=== PATIENT | female | born 1960 | race Caucasian/White ===

== ENCOUNTER → 2018-05-05 08:26 | Outpatient (CLI) | payer BC, SELFPAY ==
[2018-04-22 13:15] VITALS: BMI 32.1
--- NOTE | 2018-05-05 08:29 | NM_ITS ---
CLINICAL: 58-year-old female with reported history of carcinoma of the breast. WHOLE BODY 99m Tc MDP RADIONUCLIDE BONE SCINTIGRAPHY COMPARISON: Previous whole body bone scintigraphy study dated 06/18/2013 FINDINGS: Following the intravenous administration of 26.6 mCi of 99m Tc MDP, whole body bone images reveal: 1. Increased radiopharmaceutical concentration is currently identified in the acromioclavicular compartment of the right shoulder, mid cervical spine posteriorly on the left, ninth thoracic vertebra posteriorly on the left, the left elbow, right knee, the right ankle and right forefoot, fifth lumbar vertebra posteriorly on the left and right, posterior midline sacrum, second and ninth thoracic vertebra posteriorly on the left. 2. The remaining skeletal structures are scintigraphically unremarkable with normal-appearing renal images and urinary bladder activity identified. Facilitated uptake is defined in the right-left maxillae most consistent with periodontal disease and/or periostitis. The left knee arthroplasty demonstrates no significant increase in tracer concentration. NM/Bone Scan Whole Body IMPRESSION: 1. The increase in radiopharmaceutical concentration identified in the cervical, thoracic and lumbar spine, right shoulder, left elbow, right knee, the right ankle, right forefoot and sacrum is most consistent with degenerative arthritis. 2. Overall compared to the previous whole body bone scintigraphy study dated 06/18/2013, there is no significant interval change. No current typical scintigraphic evidence of diffuse axial skeletal metastatic disease is defined on the current examination. Electronically Signed: Jeremie Redman DO at 23:35 EST Tel , Service support ,
== END ==
PROVIDERS: Family Provider Internal Medicine; PCP Internal Medicine; Referring Provider Internal Medicine Medical Oncology; Visit Provider Internal Medicine Medical Oncology
DX: R07.89 Other chest pain (principal); Z85.3 Personal history of malignant neoplasm of breast
CPT/HCPCS: 78306

== ENCOUNTER → 2018-05-12 08:46 | Outpatient (CLI) | payer BC, SELFPAY ==
[2018-04-22 13:15] VITALS: BMI 32.1
--- NOTE | 2018-05-12 08:49 | CT_ITS ---
STUDY: CT CHEST, ABDOMEN AND PELVIS WITH CONTRAST REASON FOR EXAM: Female, 58 years old. Left chest discomfort, history of left breast cancer with lumpectomy and radiation therapy for half years ago. Prior gastric bypass, cholecystectomy, hysterectomy. RADIATION DOSAGE (If Supplied By Facility): CTDIvol = ( 15.2+12.5+21.2 ) mGy, DLP = ( 1541.83 ) mGycm TECHNIQUE: Transaxial imaging was performed following intravenous administration of 100mL ml of Isovue 300 contrast material. : Sagittal 2-D MPR Individualized dose optimization techniques were used for this CT. COMPARISON: Bone scan 05/05/2018. CT chest 07/03/2013. MRI pelvis 02/14/2015. FINDINGS: CT CHEST: Supraclavicular: No acute process. Thoracic body wall soft tissues: No acute process. There is no axillary lymphadenopathy. There is no apparent lymphedema. Osseous structures: Mild scoliosis. No visualized lytic or blastic osseous lesions. Mediastinum: There are postsurgical changes of the gastroesophageal junction and stomach consistent with prior bariatric surgery. Esophagus is unremarkable. There is no mediastinal mass or lymphadenopathy. There is no hilar lymphadenopathy. Cardiovascular: Normal heart size without pericardial effusion. No visible coronary calcifications. Nondilated aorta with no arch atherosclerosis. Nondilated central pulmonary arteries with no evidence of central pulmonary embolus. Lungs: Normal. CT abdomen and pelvis: Body wall soft tissues: No acute process. Osseous structures: No acute process. Mild low lumbar facet arthropathy without significant degenerative disc disease. Slight scoliosis. No lytic or blastic lesions are apparent. Hepatobiliary: Cholecystectomy, no significant delay or ductal ectasia, normal liver parenchyma. Pancreas: Mild atrophy. Spleen: Normal. Adrenal glands: Normal. Urogenital: Normal kidneys, collecting systems, ureters, urinary bladder. Uterus is absent. There is no adnexal mass or cyst or cul-de-sac free fluid. Pelvic floor and sidewalls and retroperitoneum: No mass or lymphadenopathy. Vasculature: Unremarkable. Stomach: Postsurgical changes. No acute process. Small bowel and mesentery: No acute process. Large bowel: Normal appendix. Unremarkable large bowel and rectum. Free fluid or free air: None. CT/Chest WITH Contrast IMPRESSION: No acute thoracic or abdominopelvic process is evident. There is no apparent abnormality of the left chest wall, left lung or pleura. There is no evidence of osseous or soft tissue metastatic disease, or lymphadenopathy. Electronically Signed: Jeremie Diana MD at 17:05 EST Tel , Service support ,
--- NOTE | 2018-05-12 08:49 | CT_ITS ---
STUDY: CT CHEST, ABDOMEN AND PELVIS WITH CONTRAST REASON FOR EXAM: Female, 58 years old. Left chest discomfort, history of left breast cancer with lumpectomy and radiation therapy for half years ago. Prior gastric bypass, cholecystectomy, hysterectomy. RADIATION DOSAGE (If Supplied By Facility): CTDIvol = ( 15.2+12.5+21.2 ) mGy, DLP = ( 1541.83 ) mGycm TECHNIQUE: Transaxial imaging was performed following intravenous administration of 100mL ml of Isovue 300 contrast material. : Sagittal 2-D MPR Individualized dose optimization techniques were used for this CT. COMPARISON: Bone scan 05/05/2018. CT chest 07/03/2013. MRI pelvis 02/14/2015. FINDINGS: CT CHEST: Supraclavicular: No acute process. Thoracic body wall soft tissues: No acute process. There is no axillary lymphadenopathy. There is no apparent lymphedema. Osseous structures: Mild scoliosis. No visualized lytic or blastic osseous lesions. Mediastinum: There are postsurgical changes of the gastroesophageal junction and stomach consistent with prior bariatric surgery. Esophagus is unremarkable. There is no mediastinal mass or lymphadenopathy. There is no hilar lymphadenopathy. Cardiovascular: Normal heart size without pericardial effusion. No visible coronary calcifications. Nondilated aorta with no arch atherosclerosis. Nondilated central pulmonary arteries with no evidence of central pulmonary embolus. Lungs: Normal. CT abdomen and pelvis: Body wall soft tissues: No acute process. Osseous structures: No acute process. Mild low lumbar facet arthropathy without significant degenerative disc disease. Slight scoliosis. No lytic or blastic lesions are apparent. Hepatobiliary: Cholecystectomy, no significant delay or ductal ectasia, normal liver parenchyma. Pancreas: Mild atrophy. Spleen: Normal. Adrenal glands: Normal. Urogenital: Normal kidneys, collecting systems, ureters, urinary bladder. Uterus is absent. There is no adnexal mass or cyst or cul-de-sac free fluid. Pelvic floor and sidewalls and retroperitoneum: No mass or lymphadenopathy. Vasculature: Unremarkable. Stomach: Postsurgical changes. No acute process. Small bowel and mesentery: No acute process. Large bowel: Normal appendix. Unremarkable large bowel and rectum. Free fluid or free air: None. CT/Abdomen/Pelvis WITH Contrast IMPRESSION: No acute thoracic or abdominopelvic process is evident. There is no apparent abnormality of the left chest wall, left lung or pleura. There is no evidence of osseous or soft tissue metastatic disease, or lymphadenopathy. Electronically Signed: Jeremie Diana MD at 17:06 EST Tel , Service support ,
== END ==
PROVIDERS: Family Provider Internal Medicine; PCP Internal Medicine; Referring Provider Internal Medicine Medical Oncology; Visit Provider Internal Medicine Medical Oncology
DX: R07.89 Other chest pain (principal); Z85.3 Personal history of malignant neoplasm of breast
CPT/HCPCS: 71260; 74177; Q9967

== ENCOUNTER → 2020-02-16 13:56 | Outpatient (CLI) | payer BC, SELFPAY ==
[2019-12-15 13:02] VITALS: BMI 33.3
--- NOTE | 2020-02-16 14:03 | BD_ITS ---
STUDY: DUAL ENERGY X-RAY ABSORPTIOMETRY / DXA REASON FOR EXAM: Female, 60 years old. 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 COMPARISON: None. FINDINGS: Lumbar Spine (L1-L4): g/cm2 (1.086) / T-score (-0.8) / Z-score (0.2) Findings are suggestive of normal bone density with a low fracture risk. Left Femur Total: g/cm2 (0.853) / T-score (-1.2) / Z-score (-0.4) Left Femoral Neck: g/cm2 (0.830) / T-score (-1.5) / Z-score (-0.4) Right Femur Total: g/cm2 (0.846) / T-score (-1.3) / Z-score (-0.5) Right Femoral Neck: g/cm2 (0.793) / T-score (-1.8) / Z-score (-0.6) BD/Dexa Bone Density Study IMPRESSION: The patient is considered osteopenic as outlined below according to World [employer] Organization (WHO) criteria with a moderate fracture risk. Reference Information: The T-score is the number of standard deviations above or below the standard which is normal for young adults at their peak bone mineral density. The World Health Organization (WHO) interprets the T-scores as follows: Above -1 Normal bone density Between -1 and -2.5 Osteopenia Equal to / or below -2.5 Osteoporosis As a practical clinical guideline, osteopenia may be graded as follows: Mild -1 through -1.5 Moderate -1.6 through -2.0 Severe -2.1 through -2.4 The Z-score is the number of standard deviations above or below age-matched controls. A Z-score of less than -1.5 would be considered abnormal. References: 1. NIH Osteoporosis and Related Bone Diseases www osteo.org 2. International Society for Clinical Densitometry www iscd.org 3. National Osteoporosis Foundation www nof.org Electronically Signed: Alosno Peck, at 10:27 EST , Service support ,
== END ==
PROVIDERS: PCP Internal Medicine; Referring Provider Internal Medicine; Visit Provider Internal Medicine
DX: Z78.0 Asymptomatic menopausal state (principal); M85.80 Other specified disorders of bone density and structure, unspecified site
CPT/HCPCS: 77080

== ENCOUNTER → 2020-08-16 16:57 | Outpatient (CLI) | payer BC, SELFPAY ==
[2020-06-14 12:59] VITALS: BMI 33.4
--- NOTE | 2020-08-16 16:59 | CT_ITS ---
HISTORY: HEAD INJURY -- HEAD TRAUMA,FOCAL NEURO FINDINGS EXAMINATION: CT Head or Brain WO/W Contrast Injection .Sagittal and coronal 2-D reformats TECHNIQUE: Multiple axial images were obtained of the head without, and with intravenous contrast. A radiation dose optimization technique was used for this scan. IV Contrast dosage and agent: 50 mL of Isovue-370 282 COMPARISON: None FINDINGS: BRAIN PARENCHYMA: No intra- or extra-axial hemorrhage. No evidence of acute infarct. No intracranial mass or mass effect. There is preservation of the bustos/white matter interface. Posterior fossa structures are unremarkable. CSF SPACES: Appropriate for age. No hydrocephalus. Basal cisterns are patent. CALVARIUM, SKULL BASE, PARANASAL SINUSES AND MASTOID AIR CELLS: Paranasal sinuses are clear. No discrete lytic or blastic abnormalities. ORBITS: Both globes, extraocular muscles, optic nerves and retrobulbar fat appear unremarkable. Vasculature: Flow is present within bilateral intracranial ICA, VALERIE, MCA, vertebral arteries, basilar artery, and lockstitcher. Bilateral posterior communicating arteries are present. The anterior communicating artery is patent. No enhancing lesions are perceived within the brain. ASPECTS Score for Acute Strokes: 10 CT/Brain/Head W/WO Contrast IMPRESSION: Negative Brain CT without contrast. Individualized dose optimization techniques were used for this CT. at 2305 Reported and signed by: Ronen Whittaker MD Electronically Signed: Ronen Whittaker MD at 23:04 EDT Tel , Service support ,
== END ==
PROVIDERS: PCP Internal Medicine; Referring Provider Nurse Practitioner; Visit Provider Nurse Practitioner
DX: S09.90XA Unspecified injury of head, initial encounter (principal); X58.XXXA Exposure to other specified factors, initial encounter; Y93.9 Activity, unspecified; Y92.9 Unspecified place or not applicable; Y99.9 Unspecified external cause status
CPT/HCPCS: 70470; Q9967

== ENCOUNTER → 2020-08-22 15:37 | Outpatient (CLI) | payer BC, SELFPAY ==
[2020-06-14 12:59] VITALS: BMI 33.4
--- NOTE | 2020-08-22 15:39 | BI_ITS ---
MAMMOGRAPHY - BILATERAL SCREENING REASON FOR EXAM: Female, 60 years old. Routine annual screening examination. PERTINENT HISTORY: Personal history of breast cancer. Prior left lumpectomy and radiation treatment. Mother with breast cancer. TECHNIQUE: Digital bilateral breast candelario (3D mammographic acquisition) in the CC and MLO projections. 2-D mediolateral oblique (MLO) and craniocaudad (CC) views of both breasts were obtained. CAD: Full Field Digital Mammography with Computer Added Detection was performed. COMPARISON: Comparison is made with prior outside examination dated 08/04/2019. FINDINGS: Breast Composition: There are scattered areas of fibroglandular density. There are no dominant masses or suspicious calcifications. Stable deformity of the left periareolar region with overlying skin thickening secondary to prior lumpectomy. No other significant abnormalities are identified. There has been no significant change since the prior study. BI/SCRN MAMM (CAD)W/CANDELARIO BILAT IMPRESSION: Stable bilateral screening mammogram. Yearly follow-up mammogram recommended. (A) ASSESSMENT CATEGORY: BIRADS Category 2: Benign. A letter regarding these results will be sent to the patient by the facility within 30 days. Approximately 10% of breast cancers are not detected by mammography. A normal mammogram should not delay biopsy of a clinically suspicious abnormality. [id number] Electronically Signed: Alonso Peck MD at 8:20 EDT , Service support ,
== END ==
PROVIDERS: PCP Internal Medicine; Referring Provider Internal Medicine Medical Oncology; Visit Provider Internal Medicine Medical Oncology
DX: Z12.31 Encounter for screening mammogram for malignant neoplasm of breast (principal); Z85.3 Personal history of malignant neoplasm of breast
CPT/HCPCS: 77063; 77067

== ENCOUNTER → 2021-08-24 | Outpatient (CLI) | payer BC, SELFPAY ==
--- NOTE | 2021-08-24 10:16 | BI_ITS ---
MAMMOGRAPHY - BILATERAL SCREENING REASON FOR EXAM: Female, 61 years old. Routine annual screening examination. PERTINENT HISTORY: Personal history of breast cancer with left lumpectomy and chemoradiation. Mother also had breast cancer. TECHNIQUE: Digital bilateral breast candelario (3D mammographic acquisition) in the CC and MLO projections. 2-D mediolateral oblique (MLO) and craniocaudad (CC) views of both breasts were obtained. CAD: Full Field Digital Mammography with Computer Added Detection was performed. COMPARISON: Bilateral breast mammogram from 08/22/2020. FINDINGS: Breast Composition: The breasts are heterogeneously dense, which may obscure small masses. There are no dominant masses or suspicious calcifications. Stable left lumpectomy postoperative changes.. No other significant abnormalities are identified. There has been no significant change since the prior study. BI/SCRN MAMM (CAD)W/CANDELARIO BILAT IMPRESSION: Stable bilateral screening mammogram. Yearly follow-up mammogram recommended. (A) ASSESSMENT CATEGORY: BIRADS Category 2: Benign. A letter regarding these results will be sent to the patient by the facility within 30 days. Approximately 10% of breast cancers are not detected by mammography. A normal mammogram should not delay biopsy of a clinically suspicious abnormality. [id number] Electronically Signed: Kashmir Lowry, at 17:39 EDT ,
== END | disposition home or self-care (01) ==
LOC: OPBI 10:15
PROVIDERS: PCP Internal Medicine; Visit Provider Internal Medicine Medical Oncology
DX: Z12.31 Encounter for screening mammogram for malignant neoplasm of breast (principal); Z85.3 Personal history of malignant neoplasm of breast; Z80.3 Family history of malignant neoplasm of breast
CPT/HCPCS: 77063; 77067

== ENCOUNTER → 2022-05-11 | Outpatient (CLI) | payer BC, SELFPAY ==
--- NOTE | 2022-05-11 15:06 | ECHOD_ITS ---
Reason For Study: RBBB Procedure This was a 2D Doppler, Color Flow transthoracic echocardiogram. Myocardial strain analysis was performed in this exam to aid in the assessment of cardiac function. Unable to obtain IV access; no bubble study. Exam performed in department. Left Ventricle Normal LV size. Left ventricular systolic function is normal. The estimated ejection fraction is 65 %. Stage 1 diastolic dysfunction. No regional wall motion abnormalities noted. Right Ventricle Normal RV size. Normal systolic function. Atria Normal left atrium. Normal right atrium. Mitral Valve Normal mitral valve. Tricuspid Valve Normal tricuspid valve. Mild (1+) tricuspid valve insufficiency. Pulmonary artery systolic pressure is 25 mmHg. Aortic Valve Normal aortic valve. Trisinus/trileaflet aortic valve. Pulmonic Valve Normal pulmonic valve. Great Vessels Normal aortic root. The pulmonary artery is normal size. Normal inferior vena cava. Pericardium/Pleural No pericardial effusion. MMode/2D Measurements & Calculations LVIDd: 4.5 cm IVSd: 0.83 cm Ao root diam: 3.1 cm LVIDs: 2.7 cm LVPWd: 0.80 cm RVDd: 2.7 cm FS: 39.9 % LAV(MOD-bp): 49.6 ml LVAd ap4: 24.4 cm2 SV(MOD-sp4): 41.7 ml LAV(MOD-bp) Indexed: 25.6 ml/m2 LVLd ap4: 7.6 cm LAV(MOD-sp2): 51.4 ml EDV(MOD-sp4): 63.8 ml LAV(MOD-sp4): 46.8 ml EDV(sp4-el): 66.5 ml LVAs ap4: 12.8 cm2 LVLs ap4: 6.5 cm ESV(MOD-sp4): 22.1 ml ESV(sp4-el): 21.5 ml EF(MOD-sp4): 65.3 % EF(sp4-el): 67.7 % SV(sp4-el): 45.0 ml LA A4 area: 18.2 cm2 LA dimension(2D): 3.4 cm RA A4 area: 12.5 cm2 Time Measurements MV dec time: 0.35 sec Doppler Measurements & Calculations MV E max eloy: 56.0 cm/sec Lat Peak E' Eloy: 12.6 cm/sec Med Peak E' Eloy: 7.8 cm/sec MV A max eloy: 56.9 cm/sec E/E' lat: 4.4 E/E' med: 7.2 MV E/A: 0.98 Ao V2 max: 128.1 cm/sec LV V1 max: 94.8 cm/sec MV dec slope: 160.5 cm/sec2 Ao max P.6 mmHg LV V1 max P.6 mmHg Ao V2 mean: 90.4 cm/sec Ao mean P.5 mmHg Ao V2 VTI: 26.1 cm PA V2 max: 99.2 cm/sec TR max eloy: 225.9 cm/sec TR max P.4 mmHg ECHO/Echo Complete Interpretation Summary Normal LV size. Left ventricular systolic function is normal. The estimated ejection fraction is 65 %. Stage 1 diastolic dysfunction. Mild (1+) tricuspid valve insufficiency. The global longitudinal strain is normal. The global longitudinal strain = -19. 9 % (normal). Ordering Physician: Farzana Cunningham Referring Physician: Farzana Cunningham Performed By: Elyse Sosa, REFUGIO, RVT
== END | disposition home or self-care (01) ==
LOC: CVS 15:05
PROVIDERS: PCP Internal Medicine; Referring Provider Internal Medicine; Visit Provider Internal Medicine
DX: I45.10 Unspecified right bundle-branch block (principal)
CPT/HCPCS: 93306; A4216

== ENCOUNTER → 2022-08-28 | Outpatient (CLI) | payer BC, SELFPAY ==
--- NOTE | 2022-08-28 11:00 | BI_ITS ---
MAMMOGRAPHY - BILATERAL SCREENING REASON FOR EXAM: Female, 62 years old. Routine annual screening examination. PERTINENT HISTORY: Personal history of breast cancer. Prior left lumpectomy and radiation therapy. Mother with breast cancer. TECHNIQUE: Digital bilateral breast candelario (3D mammographic acquisition) in the CC and MLO projections. 2-D mediolateral oblique (MLO) and craniocaudad (CC) views of both breasts were obtained. CAD: Full Field Digital Mammography with Computer Added Detection was performed. COMPARISON: Comparison is made with prior examination of August 24, 2021 and August 22, 2020. FINDINGS: Breast Composition: The breasts are heterogeneously dense, which may obscure small masses. There are no dominant masses or suspicious calcifications. Once again, the patient is status post lumpectomy in the anterior upper lateral aspect of the left breast with resultant skin thickening. No other significant abnormalities are identified. There has been no significant change since the prior study. BI/SCRN MAMM (CAD)W/CANDELARIO BILAT IMPRESSION: Stable bilateral screening mammogram. Yearly follow-up mammogram recommended. (A) ASSESSMENT CATEGORY: BIRADS Category 2: Benign. A letter regarding these results will be sent to the patient by the facility within 30 days. Approximately 10% of breast cancers are not detected by mammography. A normal mammogram should not delay biopsy of a clinically suspicious abnormality. [id number] Electronically Signed: Alonso Peck MD at 13:29 EDT ,
== END | disposition home or self-care (01) ==
LOC: OPBI 10:59
PROVIDERS: PCP Internal Medicine; Referring Provider Internal Medicine Medical Oncology; Visit Provider Internal Medicine Medical Oncology
DX: Z12.31 Encounter for screening mammogram for malignant neoplasm of breast (principal); Z85.3 Personal history of malignant neoplasm of breast; Z80.3 Family history of malignant neoplasm of breast
CPT/HCPCS: 77063; 77067

== ENCOUNTER → 2023-02-05 | Outpatient (CLI) | payer BC, SELFPAY ==
--- NOTE | 2023-02-05 07:58 | NM_ITS ---
CLINICAL: 58-year-old female with history of primary breast carcinoma. WHOLE BODY 99m Tc MDP RADIONUCLIDE BONE SCINTIGRAPHY COMPARISON: Previous whole body bone scintigraphy study dated 05/15/2018 FINDINGS: Following the intravenous administration of 25.8 mCi of 99m Tc MDP, whole body bone images reveal: 1. Increased radiopharmaceutical concentration is defined in the sternoclavicular compartment of the right shoulder, acromioclavicular compartment of the bilateral shoulders, the right elbow, right wrist, the right knee, the ankles bilaterally, the right midfoot, the patellofemoral compartment of the left knee. 2. The remaining skeletal structures are scintigraphically unremarkable with normal-appearing renal images and urinary bladder activity identified. Enhanced uptake is noted in the femoral and tibial components of the presumably asymptomatic left knee arthroplasty most consistent with normal postsurgical change. NM/Bone Scan Whole Body IMPRESSION: 1. The increase in radiopharmaceutical concentration identified in the bilateral shoulders, right elbow, right wrist, the right knee, both ankle articulations, right forefoot and left knee in the absence of patellar hardware placement, is most consistent with degenerative arthrosis. 2. Overall compared to the previous whole body bone scintigraphy study dated 05/05/2018, there is continued absence of diffuse osseous metastatic disease. Electronically Signed: Jeremie Redman DO at 22:33 EST ,
== END | disposition home or self-care (01) ==
PROVIDERS: PCP Internal Medicine; Referring Provider Internal Medicine Medical Oncology; Visit Provider Internal Medicine Medical Oncology
DX: R07.81 Pleurodynia (principal); R22.2 Localized swelling, mass and lump, trunk; Z85.3 Personal history of malignant neoplasm of breast
CPT/HCPCS: 78306; A9503

== ENCOUNTER → 2023-02-08 | Outpatient (CLI) | payer BC, SELFPAY ==
--- NOTE | 2023-02-08 13:35 | CT_ITS ---
STUDY: CT CHEST T ABDOMEN WITH CONTRAST REASON FOR EXAM: Female, 62 years old. rib pain, hx of breast ca RADIATION DOSAGE (If Supplied By Facility): CTDIvol = ( 13.97 ) mGy, DLP = ( 993.55 ) mGycm TECHNIQUE: Transaxial imaging was performed following intravenous administration of IV 100mL Isovue-300. Individualized dose optimization techniques were used for this CT. COMPARISON: 05/12/2018 FINDINGS: CHEST The lungs are normal. There is no demonstrated pleural abnormality. Normal heart and pericardium. Normal mediastinum. Normal hilar regions. Normal unenhanced pulmonary arteries. Normal aorta arch and descending thoracic aorta. Normal osseous structures. There is no demonstrated abnormality of the visualized upper abdomen. ABDOMEN The visualized lung bases are unremarkable. The visualized portions of the heart are within normal limits. Normal liver. There are surgical clips in the gallbladder fossa consistent with a prior cholecystectomy. Normal spleen. Normal pancreas. Normal bilateral adrenal glands. Normal right kidney. Normal left kidney. Status post gastric surgery, possibly gastric bypass. Normal small intestine. Normal colon. The appendix is visualized and appears normal. Normal abdominal aorta. Normal inferior vena cava. Normal retroperitoneum. Normal abdominal wall. Normal osseous structures. CT/CT Chest AND Abd W/ Contrast IMPRESSION: Normal enhanced CT chest T abdomen examination. Electronically Signed: Jeremie Arevalo MD at 1:02 [facility] ,
== END | disposition home or self-care (01) ==
PROVIDERS: PCP Internal Medicine; Referring Provider Internal Medicine Medical Oncology; Visit Provider Internal Medicine Medical Oncology
DX: R22.2 Localized swelling, mass and lump, trunk (principal); R07.81 Pleurodynia; Z85.3 Personal history of malignant neoplasm of breast
CPT/HCPCS: 71260; 74160; Q9967; A4216

== ENCOUNTER → 2023-08-30 | Outpatient (CLI) | payer BC, SELFPAY ==
--- NOTE | 2023-08-30 12:57 | BI_ITS ---
MAMMOGRAPHY - BILATERAL SCREENING REASON FOR EXAM: Female, 63 years old. Routine annual screening examination. PERTINENT HISTORY: Personal history of breast cancer. Prior left lumpectomy with radiation therapy. TECHNIQUE: Digital bilateral breast candelario (3D mammographic acquisition) in the CC and MLO projections. 2-D mediolateral oblique (MLO) and craniocaudad (CC) views of both breasts were obtained. CAD: Full Field Digital Mammography with Computer Added Detection was performed. COMPARISON: Comparison is made with prior study dated August 28, 2022 and August 24, 2021. FINDINGS: Breast Composition: The breasts are heterogeneously dense, which may obscure small masses. There are no dominant masses or suspicious calcifications. Once again, the patient is status post lumpectomy in the anterior upper lateral aspect of the left breast with resultant breast deformity and overlying postoperative skin thickening. Small benign-appearing bilateral axillary lymph nodes. No other significant abnormalities are identified. There has been no significant change since the prior study. BI/SCRN MAMM (CAD)W/CANDELARIO BILAT IMPRESSION: Stable bilateral screening mammogram. Yearly follow-up mammogram recommended. (A) ASSESSMENT CATEGORY: BIRADS Category 2: Benign. A letter regarding these results will be sent to the patient by the facility within 30 days. Approximately 10% of breast cancers are not detected by mammography. A normal mammogram should not delay biopsy of a clinically suspicious abnormality. [id number] Electronically Signed: Alonso Peck MD at 13:57 EDT ,
== END | disposition home or self-care (01) ==
LOC: OPBI 12:57
PROVIDERS: PCP Internal Medicine; Referring Provider Internal Medicine Medical Oncology; Visit Provider Internal Medicine Medical Oncology
DX: Z12.31 Encounter for screening mammogram for malignant neoplasm of breast (principal); Z85.3 Personal history of malignant neoplasm of breast
CPT/HCPCS: 77063; 77067

== ENCOUNTER → 2024-04-08 | Outpatient (CLI) | payer BC, SELFPAY ==
--- NOTE | 2024-04-08 09:27 | BI_ITS ---
MAMMOGRAPHY - BILATERAL DIAGNOSTIC REASON FOR EXAM: Female, 64 years old. Left breast pain at the site of the left lumpectomy. PERTINENT HISTORY: Personal history of breast cancer. Mother with breast cancer. TECHNIQUE: Digital bilateral breast bryson (3D mammographic acquisition) in the CC and MLO projections. 2-D mediolateral oblique (MLO) and craniocaudad (CC) views of both breasts were obtained. CAD: Full Field Digital Mammography with Computer Added Detection was performed. COMPARISON: Comparison is made with prior study dated August 30, 2023 and August 28, 2022. FINDINGS: Breast Composition: There are scattered areas of fibroglandular density. There are no dominant masses or suspicious calcifications. The patient is status post lumpectomy in the anterior upper lateral aspect of the left breast with resultant postoperative deformity and skin thickening. No other significant abnormalities are identified. There has been no significant change since the prior study. BI/DIAG MAMM W/CAD, BILAT IMPRESSION: Stable bilateral diagnostic mammogram. With the patient''s history of pain in the upper lateral aspect of the left breast, correlation with ultrasound recommended. ASSESSMENT CATEGORY: BIRADS Category 0: Incomplete. Need additional imaging evaluation. A letter regarding these results will be sent to the patient by the facility within 30 days. Approximately 10% of breast cancers are not detected by mammography. A normal mammogram should not delay biopsy of a clinically suspicious abnormality. Electronically Signed: Alonso Peck MD at 10:25 EST ,
--- NOTE | 2024-04-08 09:27 | US_ITS ---
STUDY: ULTRASOUND BREAST - LEFT REASON FOR EXAM: Female, 64 years old. Left breast pain. TECHNIQUE: Axial and longitudinal images of the LEFT breast were performed with a high resolution ultrasound transducer. # OF IMAGES: 36 COMPARISON: Comparison is made with prior mammogram done earlier in the day. FINDINGS: LEFT Breast: The upper outer quadrant of the left breast was examined with ultrasound. This corresponds to the lumpectomy site. No sonographic abnormality is seen. US/Breast Limited Unilateral IMPRESSION: No sonographic abnormality is seen. ASSESSMENT CATEGORY: BIRADS Category 1: Negative. A letter regarding these results will be sent to the patient by the facility within 30 days. Electronically Signed: Alonso Peck MD at 10:30 EST ,
== END | disposition home or self-care (01) ==
PROVIDERS: PCP Internal Medicine; Referring Provider Nurse Practitioner Family; Visit Provider Nurse Practitioner Family
DX: N63.20 Unspecified lump in the left breast, unspecified quadrant (principal); Z85.3 Personal history of malignant neoplasm of breast
CPT/HCPCS: 76642; 77062; 77066; G0279

== ENCOUNTER → 2024-04-21 | Outpatient (CLI) | payer BC, SELFPAY ==
--- NOTE | 2024-04-21 10:29 | MRI_ITS ---
STUDY: BILATERAL BREAST MR WITHOUT AND WITH CONTRAST REASON FOR EXAM: Female, 64 years old. History of breast cancer. TECHNIQUE: Multi-sequence multi-echo imaging of both breasts was performed with a dedicated breast coil. T1-weighted and T2-weighted images were performed before the administration of contrast. T1-weighted images were also performed after the intravenous administration of 17 cc of Clariscan contrast. COMPARISON: Left breast ultrasound dated April 08, 2024, bilateral diagnostic mammogram dated April 08, 2024 and screening mammogram dated August 30, 2023 FINDINGS: RIGHT BREAST: Fatty replaced breast tissue with minimal background enhancement. No abnormal enhancing masses or areas of non-mass enhancement in the right breast. LEFT BREAST: Fatty replaced breast tissue with minimal background enhancement. No abnormal enhancing masses or areas of non-mass enhancement in the right breast. No enlarged or abnormal lymph nodes. No abnormality in the visualized regions of the chest or liver. MRI/Breast Bilateral W/O and W IMPRESSION: No abnormality on the bilateral breast MRI with contrast. Yearly screening mammogram with appropriate. CATEGORY: BIRADS Category 2: Benign. A letter regarding these results will be sent to the patient by the facility within 30 days. Electronically Signed: Johny Banuelos MD at 10:54 EST ,
== END | disposition home or self-care (01) ==
LOC: MRI 10:25
PROVIDERS: PCP Internal Medicine; Referring Provider Surgery; Visit Provider Surgery
DX: N63.20 Unspecified lump in the left breast, unspecified quadrant (principal); Z85.3 Personal history of malignant neoplasm of breast
CPT/HCPCS: 77049; A9575; A4216; C8908